=== PATIENT | female | born 1965 | race African-American/Black ===

== ENCOUNTER 2018-12-25 10:46 | Inpatient (IN) | payer OTHER ==
[2018-12-25 11:27] VITALS: BMI 21.9
--- NOTE | 2018-12-25 11:58 | HP ---
CIWA Score - Admission Criteria [facility] Guidelines: Admission for Medically Managed Detox: Requires at least one of the followin. CIWA greater than 12 2. Seizures within the past 24 hours 3. Delirium tremens within the past 24 hours 4. Hallucinations within the past 24 hours 5. Acute intervention needed for co occurring medical disorder 6. Acute intervention needed for co occurring psychiatric disorder 7. Severe withdrawal that cannot be handled at a lower level of care (continued vomiting, continued diarrhea, abnormal vital signs) requiring intravenous medication and/or fluids 8. Admission ROS [facility] - HPI Chief Complaint: i need help to come for rehab from cocaine and marijuana Allergies/Adverse Reactions: Allergies Allergy/AdvReac Type Severity Reaction Status Date / Time No Known Allergies Allergy Verified 12/25/18 11:38 History of Present Illness: this 53 years old female with cocaine and marijuana dependence,seeking rehab, [facility], nicotine dependence need help to stop using last treatment 2 0 years ago Exam Limitations: No Limitations - Ebola screening Have you traveled outside of the country in the last 21 days: No Have you had contact with anyone from an Ebola affected area: No Have you been sick,other than usual withdrawal symptoms: No Do you have a fever: No - Review of Systems Constitutional: No Symptoms Reported EENT: reports: No Symptoms Reported Respiratory: reports: No Symptoms reported Cardiac: reports: No Symptoms Reported GI: reports: No Symptoms Reported : reports: No Symptoms Reported Musculoskeletal: reports: No Symptoms Reported Integumentary: reports: No Symptoms Reported Neuro: reports: No Symptoms reported Endocrine: reports: No Symptoms Reported Hematology: reports: No Symptoms Reported Psychiatric: reports: No Sypmtoms Reported, Judgement Intact, Mood/Affect Appropiate, Orientated x3, other Other Systems: Reviewed and Negative Patient History - Patient Medical History Hx Anemia: No Hx Asthma: No Hx Chronic Obstructive Pulmonary Disease (COPD): No Hx Cancer: No Hx Cardiac Disorders: No Hx Congestive Heart Failure: No Hx Hypertension: No Hx Hypercholesterolemia: No Hx Pacemaker: No HX Cerebrovascular Accident: No Hx Seizures: No Hx Dementia: No Hx Diabetes: No Hx Gastrointestinal Disorders: No Hx Liver Disease: No Hx Genitourinary Disorders: No Hx Sexually Transmitted Disorders: Yes (SYPHYLIS WITH TREATMENT) Hx Renal Disease (ESRD): No Hx Thyroid Disease: No Hx Human Immunodeficiency Virus (HIV): No (last 2017 negative) Hx Hepatitis C: No Hx Depression: Yes (DOES NOT KNOW THE NAME OF THE DEPRESSION MEDICATION) Hx Suicide Attempt: No Hx Bipolar Disorder: No Hx Schizophrenia: No Other Medical History: no sucidal,no homicidal - Patient Surgical History Past Surgical History: No Hx Neurologic Surgery: No Hx Cataract Extraction: No Hx Cardiac Surgery: No Hx Lung Surgery: No Hx Breast Surgery: No Hx Breast Biopsy: No Hx Abdominal Surgery: No Hx Appendectomy: No Hx Cholecystectomy: No Hx Genitourinary Surgery: No Hx Section: No Hx Orthopedic Surgery: No Anesthesia Reaction: No - PPD History Previous Implant?: Yes Documented Results: Negative w/o proof Implanted On Prior [facility] Admission?: No PPD to be Administered?: Yes - Reproductive History Last Menstrual Period: 12/26/08 Patient : No - Smoking Cessation Smoking history: Current every day smoker Have you smoked in the past 12 months: Yes Aproximately how many cigarettes per day: 5 Hx Chewing Tobacco Use: No Initiated information on smoking cessation: Yes 'Breaking Loose' booklet given: 12/25/18 - Substance & Tx. History Hx Alcohol Use: No Hx Substance Use: Yes Substance Use Type: Cocaine, Marijuana Hx Substance Use Treatment: Yes ([facility] 20 years ago) - Substances Abused Marijuana/Hashish Route: Smoking Frequency: Daily Amount used: 2 BAGS Age of first use: 14 Date of Last Use: 12/24/18 Cocaine Route: Inhalation Frequency: 1-2 times per week Amount used: 1 GRAM Age of first use: 19 Date of Last Use: 12/18/18 Family Disease History - Family Disease History Family History: Denies Admission Physical Exam [facility] - Vital Signs Vital Signs: Vital Signs - 24 hr 12/25/18 11:26 Temperature 98.2 F Pulse Rate 64 Respiratory 18 Rate Blood Pressure 112/58 L - Physical General Appearance: Yes: Within Normal Limits HEENTM: Yes: Within Normal Limits, Normal ENT Inspection, MAYRA Respiratory: Yes: Within Normal Limits, Lungs Clear, Normal Breath Sounds Neck: Yes: Within Normal Limits, Supple, Trachea in good position Breast: Yes: Breast Exam Deferred Cardiology: Yes: Within Normal Limits, Regular Rhythm, Regular Rate, S1, S2 Abdominal: Yes: Within Normal Limits, Normal Bowel Sounds, Non Tender, Soft Genitourinary: Yes: Within Normal Limits Back: Yes: Within Normal Limits Musculoskeletal: Yes: Within Normal Limits, full range of Motion Extremities: Yes: Within Normal Limits Neurological: Yes: zipper measurer II-XII NML intact, Alert, Motor Strength 5/5 Integumentary: Yes: Within Normal Limits Lymphatic: Yes: Within Normal Limits - Diagnostic (1) Cocaine dependence Current Visit: Yes Status: Acute (2) Cannabis dependence Current Visit: Yes Status: Acute (3) Nicotine dependence Current Visit: Yes Status: Acute (4) History of syphilis Current Visit: Yes Status: Acute Cleared for Admission [facility] - Detox or Rehab Claeared for Rehab Admission: Yes [facility] Breath Alcohol Content Breath Alcohol Content: 0 Urine Pregancy Test - Result Urine Test Results: Negative- NO Line Present Urine Drug Screen - Results Drug Screen Negative: No Urine Drug Screen Results: THC-Marijuana Inpatient Rehab Admission - Rehab Decision to Admit Inpatient rehab admission?: Yes - Initial Determination Are CD services needed?: Yes Free of communicable disease: Yes Not in need of hospitalization: Yes - Rehab Admission Criteria Previous failed treatment: Yes Poor recovery environment: Yes Comorbidities: Yes Lacks judgement: No Patient is meeting Inpatient Rehab admission criteria:: Yes
[2018-12-25] MEDS ORDERED: LOPERAMIDE HCL 2 MG CAPSULE PO PRN (12:56)
[2018-12-25] MEDS ORDERED: MAGNESIUM CITRATE 300 ML BOTTLE PO PRN (12:56)
[2018-12-25] MEDS ORDERED: MENTHOL/PHENOL 1 EACH UD MM PRN (12:56)
[2018-12-25] MEDS ORDERED: MAGNESIUM HYDROX 2400MG/30ML ORAL SUSPENSION 30 ML CUP PO PRN (12:56)
[2018-12-25] MEDS ORDERED: MAG HYDROX/AL HYDROX/SIMETH 30 ML UNIT-DOSE CUP PO PRN (12:56)
[2018-12-25] MEDS ORDERED: guaiFENesin/D-METHORPHAN HB 10 ML UNIT-DOSE CUPS PO PRN (12:56)
[2018-12-25] MEDS ORDERED: IBUPROFEN 400 MG TABLET (FP) PO PRN (12:56)
[2018-12-25] MEDS ORDERED: ACETAMINOPHEN 325 MG TABLET (FP) PO PRN (12:56)
[2018-12-25] MEDS ORDERED: P-EPHED 60MG/TRIPROLIDI 2.5MG TABLET PO PRN (12:56)
[2018-12-25] MEDS ORDERED: NICOTINE 14 MG/24 HOURS TOPICAL PATCH TD SCH (13:30)
[2018-12-25 16:19] LABS: HEMATOCRIT 36.8 % (32.4-45.2); MCH 33.3 pg (25.7-33.7); MCHC 35.2 g/dl (32.0-36.0); MEAN CELL VOLUME 94.5 fl (80-96); PLATELET COUNT 197 K/MM3 (134-434); RBC 3.89 M/mm3 (3.60-5.2); RDW 14.5 % (11.6-15.6); WHITE BLOOD COUNT 5.2 K/mm3 (4.0-10.0)
[2018-12-25 17:21] LABS: ALBUMIN 3.9 g/dl (3.4-5.0); ALK PHOS 82 U/L (45-117); ANION GAP 6 MMOL/L (8-16); BILIRUBIN,TOTAL 0.2 mg/dL (0.2-1); BLOOD UREA NITROGEN 17 mg/dL (7-18); CHLORIDE 107 mmol/L (98-107); CO2 31 mmol/L (21-32); CREATININE 0.8 mg/dL (0.55-1.3); GLUCOSE,RANDOM 56 mg/dL (74-106); SGOT/AST 10 U/L (15-37); SGPT/ALT 17 U/L (13-61); SODIUM 143 mmol/L (136-145); TOT PROT 6.9 g/dl (6.4-8.2)
[2018-12-25] MEDS: NICOTINE POLACRILEX 2 MG GUM BC PRN (18:26)
[2018-12-25] MEDS: hydrOXYzine PAMOATE 50 MG CAPSULE (FP) PO PRN (18:26)
[2018-12-25] MEDS: NICOTINE 14 MG/24 HOURS TOPICAL PATCH TD SCH (18:35)
[2018-12-25] MEDS: THIAMINE HCL 100 MG TABLET (FP) PO SCH (21:15)
[2018-12-25] MEDS ORDERED: MELATONIN 5 MG TABLETS PO PRN (22:00)
[2018-12-26 01:57] LABS: URINE APPEARANCE SLCLOUDY; URINE BILIRUBIN NEGATIVE (<2.0 mg/dL); URINE COLOR LTYELLOW; URINE GLUCOSE (UA) NEGATIVE (NEGATIVE); URINE KETONE NEGATIVE (NEGATIVE); URINE LEUK ESTERASE NEGATIVE (NEGATIVE); URINE NITRITE NEGATIVE (NEGATIVE); URINE PROTEIN NEGATIVE (NEGATIVE); URINE UROBILINOGEN NEGATIVE mg/dL (0.2-1.0)
[2018-12-26] MEDS: hydrOXYzine PAMOATE 50 MG CAPSULE (FP) PO PRN ×2 (06:52→21:39)
--- NOTE | 2018-12-26 10:00 | EKG ---
Test Reason : Blood Pressure : / mmHG Vent. Rate : 064 BPM Atrial Rate : 064 BPM P-R Int : 186 ms QRS Dur : 072 ms QT Int : 406 ms P-R-T Axes : 056 008 048 degrees QTc Int : 418 ms NORMAL SINUS RHYTHM WITH SINUS ARRHYTHMIA SEPTAL INFARCT (CITED ON OR BEFORE 06-JUN-2013) ABNORMAL ECG WHEN COMPARED WITH ECG OF 07-JAN-2016 09:50, QUESTIONABLE CHANGE IN INITIAL FORCES OF SEPTAL LEADS QT HAS SHORTENED Confirmed by ESTEBAN KENDALL, BERTIN ([id number]) on 12/26/2018 9:59:47 AM Referred By: Confirmed By:BERTIN ORELLANA MD
[2018-12-26] MEDS: NICOTINE 14 MG/24 HOURS TOPICAL PATCH TD SCH (10:32)
[2018-12-26] MEDS: PRENATAL VITAMINS W/ FOLIC ACID TABLET (FP) PO SCH (10:32)
[2018-12-26 11:34] LABS: RPR REACTIVE 1:1 (NONREACTIVE)
[2018-12-26 14:49] LABS: TREPONEMA ANTIBODY REACTIVE (NONREACTIVE)
--- NOTE | 2018-12-26 14:55 | PN ---
[facility] Progress Note Note: Laboratory Tests 12/25/18 12/25/18 12/25/18 13:20 13:20 13:20 WBC 5.2 RBC 3.89 Hgb 13.0 Hct 36.8 MCV 94.5 MCH 33.3 MCHC 35.2 RDW 14.5 Plt Count 197 MPV 10.0 Sodium 143 Potassium 4.0 Chloride 107 Carbon Dioxide 31 Anion Gap 6 L BUN 17 Creatinine 0.8 Creat Clearance w eGFR > 60 Random Glucose 56 L Calcium 9.0 Total Bilirubin 0.2 AST 10 L ALT 17 Alkaline Phosphatase 82 Total Protein 6.9 Albumin 3.9 Urine Color Urine Appearance Urine pH Ur Specific [place] Urine Protein Urine Glucose (UA) Urine Ketones Urine Blood Urine Nitrite Urine Bilirubin Urine Urobilinogen Ur Leukocyte Esterase RPR Titer Reactive 1:1 H T.pallidum Ab (MHA) Reactive 12/25/18 23:18 WBC RBC Hgb Hct MCV MCH MCHC RDW Plt Count MPV Sodium Potassium Chloride Carbon Dioxide Anion Gap BUN Creatinine Creat Clearance w eGFR Random Glucose Calcium Total Bilirubin AST ALT Alkaline Phosphatase Total Protein Albumin Urine Color Ltyellow Urine Appearance Slcloudy Urine pH 6.0 Ur Specific [place] 1.020 Urine Protein Negative Urine Glucose (UA) Negative Urine Ketones Negative Urine Blood Negative Urine Nitrite Negative Urine Bilirubin Negative Urine Urobilinogen Negative Ur Leukocyte Esterase Negative RPR Titer T.pallidum Ab (MHA) RPR NOTED. PT REPORTS HX OF SYPHILIS AND TREATMENT.
[2018-12-26] MEDS: THIAMINE HCL 100 MG TABLET (FP) PO SCH (21:39)
[2018-12-27] MEDS: NICOTINE 14 MG/24 HOURS TOPICAL PATCH TD SCH (09:54)
[2018-12-27] MEDS: PRENATAL VITAMINS W/ FOLIC ACID TABLET (FP) PO SCH (09:54)
[2018-12-27] MEDS: THIAMINE HCL 100 MG TABLET (FP) PO SCH (22:14)
[2018-12-28] MEDS: NICOTINE 14 MG/24 HOURS TOPICAL PATCH TD SCH (09:51)
[2018-12-28] MEDS: PRENATAL VITAMINS W/ FOLIC ACID TABLET (FP) PO SCH (09:51)
[2018-12-28] MEDS: hydrOXYzine PAMOATE 50 MG CAPSULE (FP) PO PRN (09:52)
[2018-12-28] MEDS: THIAMINE HCL 100 MG TABLET (FP) PO SCH (22:18)
[2018-12-29] MEDS: NICOTINE 14 MG/24 HOURS TOPICAL PATCH TD SCH (09:57)
[2018-12-29] MEDS: PRENATAL VITAMINS W/ FOLIC ACID TABLET (FP) PO SCH (09:57)
[2018-12-29] MEDS: NICOTINE POLACRILEX 2 MG GUM BC PRN (09:59)
[2018-12-29] MEDS: THIAMINE HCL 100 MG TABLET (FP) PO SCH (21:54)
[2018-12-30] MEDS: PRENATAL VITAMINS W/ FOLIC ACID TABLET (FP) PO SCH (09:52)
[2018-12-30] MEDS: NICOTINE 14 MG/24 HOURS TOPICAL PATCH TD SCH (09:52)
[2018-12-30] MEDS: THIAMINE HCL 100 MG TABLET (FP) PO SCH (21:51)
[2018-12-31] MEDS: PRENATAL VITAMINS W/ FOLIC ACID TABLET (FP) PO SCH (09:43)
[2018-12-31] MEDS: NICOTINE 14 MG/24 HOURS TOPICAL PATCH TD SCH (09:43)
[2018-12-31] MEDS: THIAMINE HCL 100 MG TABLET (FP) PO SCH (21:35)
[2019-01-01 06:47] VITALS: TEMP 97.6
[2019-01-01] MEDS: PRENATAL VITAMINS W/ FOLIC ACID TABLET (FP) PO SCH (09:20)
[2019-01-01] MEDS: NICOTINE 14 MG/24 HOURS TOPICAL PATCH TD SCH (09:20)
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
[2019-01-01] MEDS ORDERED: MELATONIN 5 MG TABLETS PO PRN (14:49)
[2019-01-01] MEDS: THIAMINE HCL 100 MG TABLET (FP) PO SCH (21:34)
[2019-01-02 07:05] VITALS: BP 129/80; PULSE 50
[2019-01-02] MEDS: NICOTINE 14 MG/24 HOURS TOPICAL PATCH TD SCH (09:50)
[2019-01-02] MEDS: PRENATAL VITAMINS W/ FOLIC ACID TABLET (FP) PO SCH (09:51)
[2019-01-02] MEDS: NICOTINE POLACRILEX 2 MG GUM BC PRN (09:52)
--- NOTE | 2019-01-02 14:54 | PN ---
[facility] Progress Note Note: PT REQUEST FOR EARLY DISCHARGE TODAY STATING N"NOT GETTING ALONG WITH ANOTHER CLIENT AND WOULD PREFER TO FOLLOW UP AT [facility] ON [address] [place] [address]. PT IS ALERT O X 3. PT REPORTS SHE HAS A PCP, DR ANKITA RIZO ON [address] [place] [address] FOR MEDICAL MANAGEMENT. Vital Signs (72 hours) 12/31/18 12/31/18 12/31/18 00:30 03:30 07:07 Temperature 97.8 F Pulse Rate 57 L Respiratory 18 18 18 Rate Blood Pressure 121/66 01/01/19 01/01/19 01/01/19 00:30 03:30 06:47 Temperature 97.6 F Pulse Rate 62 Respiratory 18 18 18 Rate Blood Pressure 135/75 01/02/19 01/02/19 00:30 07:04 Temperature 97.6 F Pulse Rate 50 L Respiratory 18 18 Rate Blood Pressure 129/80 Laboratory Tests 12/25/18 12/25/18 12/25/18 13:20 13:20 13:20 WBC 5.2 RBC 3.89 Hgb 13.0 Hct 36.8 MCV 94.5 MCH 33.3 MCHC 35.2 RDW 14.5 Plt Count 197 MPV 10.0 Sodium 143 Potassium 4.0 Chloride 107 Carbon Dioxide 31 Anion Gap 6 L BUN 17 Creatinine 0.8 Creat Clearance w eGFR > 60 Random Glucose 56 L Calcium 9.0 Total Bilirubin 0.2 AST 10 L ALT 17 Alkaline Phosphatase 82 Total Protein 6.9 Albumin 3.9 Urine Color Urine Appearance Urine pH Ur Specific [place] Urine Protein Urine Glucose (UA) Urine Ketones Urine Blood Urine Nitrite Urine Bilirubin Urine Urobilinogen Ur Leukocyte Esterase RPR Titer Reactive 1:1 H T.pallidum Ab (MHA) Reactive 12/25/18 23:18 WBC RBC Hgb Hct MCV MCH MCHC RDW Plt Count MPV Sodium Potassium Chloride Carbon Dioxide Anion Gap BUN Creatinine Creat Clearance w eGFR Random Glucose Calcium Total Bilirubin AST ALT Alkaline Phosphatase Total Protein Albumin Urine Color Ltyellow Urine Appearance Slcloudy Urine pH 6.0 Ur Specific [place] 1.020 Urine Protein Negative Urine Glucose (UA) Negative Urine Ketones Negative Urine Blood Negative Urine Nitrite Negative Urine Bilirubin Negative Urine Urobilinogen Negative Ur Leukocyte Esterase Negative RPR Titer T.pallidum Ab (MHA) NAD MEDICALLY STABLE PLAN:FOLLOW UP WITH [facility] FOR CD AFTERCARE RECOMMENDED FOLLOW UP WITH PCP ABOVE FOR MEDICAL MANAGEMENT WITHIN 1-2 WEEKS AFTER DISCHARGE.
== END 2019-01-02 13:40 | disposition home or self-care (01) | DRG 772 ==
LOC: YASAS 10:46 → Y3E 12:32
PROVIDERS: ADMIT Neuromusculoskeletal Medicine & OMM; ATTEND Neuromusculoskeletal Medicine & OMM
PROC: HZ42ZZZ Group Counseling for Substance Abuse Treatment, Cognitive-Behavioral (ICD-10-PCS; principal; 2018-12-25)
DX: F14.20 Cocaine dependence, uncomplicated (principal); F12.20 Cannabis dependence, uncomplicated; F17.210 Nicotine dependence, cigarettes, uncomplicated; F19.24 Other psychoactive substance dependence with psychoactive substance-induced mood disorder; F19.282 Other psychoactive substance dependence with psychoactive substance-induced sleep disorder; Z87.42 Personal history of other diseases of the female genital tract
CPT/HCPCS: 36415; 80053; 81003; 85027; 86593; 86780; 93005; 93010

== ENCOUNTER 2019-04-01 09:52 | Emergency (ER) | payer OTHER | END 2019-04-01 11:08 | disposition home or self-care (01) | LOC: JERFT 09:52 ==

== ENCOUNTER 2019-04-09 12:53 | Emergency (ER) | payer OTHER | END 2019-04-09 13:47 | disposition home or self-care (01) | LOC: JERFT 12:53 ==

== ENCOUNTER 2020-08-01 14:14 | Emergency (ER) | payer OTHER ==
[2020-08-01 14:34] VITALS: BMI 20.3
--- NOTE | 2020-08-01 14:42 | PDOC ---
History of Present Illness - General Chief Complaint: Nausea/Vomiting Stated Complaint: GENERAL WEAKNESS, VOMITING Time Seen by Provider: 08/01/20 14:41 History Source: Patient Exam Limitations: No Limitations - History of Present Illness Initial Comments: 08/01/20 14:42 Sena Goff is an otherwise healthy 55F presenting with one day of nausea, vomiting, and diarrhea. Since 7PM last night has had acute onset nausea and vomiting with fevers. 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 Had some orange juice, fruits, and some soup yesterday, no other sick contacts, lives alone. Denies any urinary symptoms, but has had loose stools and abdominal cramping after vomiting. Vomit is clear and green, no blood. No PSH. Denies alcohol use, last smoked marijuana a few days ago, averages 1 blunt every few days, smokes cigarettes. Denies LEVY, dizziness, chest pain, SOB, vision changes, unsteady gait. No prior pain or symptoms like this. Past History - Medical History Allergies/Adverse Reactions: Allergies Allergy/AdvReac Type Severity Reaction Status Date / Time No Known Allergies Allergy Verified 08/01/20 14:34 Anemia: No Asthma: No Cancer: No Cardiac Disorders: No CVA: No COPD: No CHF: No Dementia: No Diabetes: No GI Disorders: No Disorders: No HTN: No Hypercholesterolemia: No Kidney Stones: No Liver Disease: No Seizures: No Thyroid Disease: No - Surgical History Abdominal Surgery: No Appendectomy: No Cardiac Surgery: No Cholecystectomy: No Lung Surgery: No Neurologic Surgery: No Orthopedic Surgery: No - Reproductive History Is Patient Now?: No - Immunization History Immunization Up to Date: Yes - Psycho-Social/Smoking History Smoking Status: No Smoking History: Never smoked Have you smoked in the past 12 months: No Number of Cigarettes Smoked Daily: 1 Information on smoking cessation initiated: No 'Breaking Loose' booklet given: 12/25/18 - Substance Abuse Hx (Audit-C & DAST Scrn) How often the patient has a drink containing alcohol: Never Score: In Men: 4 or > Positive; In Women: 3 or > Positive: 0 Screen Result (Pos requires Nsg. Audit-10AR): Negative In the last yr the pt used illegal drug/Rx for NonMed reason: No Score: Yes response is considered Positive: 0 Screen Result (Positive result requires Nsg. DAST-10): Negative Review of Systems - Review of Systems Able to Perform ROS?: Yes Constitutional: Yes: Fever HEENTM: No: Symptoms Reported Respiratory: No: Symptoms reported Cardiac (ROS): No: Symptoms Reported ABD/GI: Yes: Diarrhea, Nausea, Poor Appetite, Poor Fluid Intake, Vomiting. No: Constipated : No: Symptoms Reported Musculoskeletal: No: Symptoms Reported Integumentary: No: Symptoms Reported Neurological: No: Symptoms reported Endocrine: No: Symptoms Reported Hematologic/Lymphatic: No: Symptoms Reported All Other Systems: Reviewed and Negative *Physical Exam - Vital Signs Last Vital Signs Temp Pulse Resp BP Pulse Ox 70 16 130/72 100 08/01/20 14:15 08/01/20 14:15 08/01/20 14:15 08/01/20 14:15 - Physical Exam General Appearance: Yes: Nourished, Appropriately Dressed, Other (lying in bed in position, intermittently vomiting). No: Apparent Distress HEENT: positive: EOMI, MAYRA, Normal Voice, Symmetrical, Pharynx Normal, Hearing Grossly Normal. negative: Scleral Icterus (R), Scleral Icterus (L), Pharyngeal Erythema, Tonsillar Exudate, Tonsillar Erythema Neck: positive: Trachea midline, Normal Thyroid, Supple. negative: Tender, Rigid, Decreased range of motion, Lymphadenopathy (R), Lymphadenopathy (L), Tender lateral, Tender midline Respiratory/Chest: positive: Lungs Clear, Normal Breath Sounds. negative: Chest Tender, Respiratory Distress, Accessory Muscle Use, Crackles, Rales, Rhonchi, Stridor, Wheezing Cardiovascular: positive: Regular Rhythm, Regular Rate. negative: Murmur Gastrointestinal/Abdominal: positive: Normal Bowel Sounds, Flat, Soft. negative: Tender, Organomegaly, Pulsatile Mass, Protuberent, Guarding, Rebound, Hernia Musculoskeletal: positive: Normal Inspection. negative: CVA Tenderness, Decreased Range of Motion, Vertebral Tenderness Extremity: positive: Normal Capillary Refill, Normal Inspection, Normal Range of Motion, Pelvis Stable. negative: Tender, Pedal Edema, Swelling, Calf Tenderness Integumentary: positive: Normal Color, Dry, Warm. negative: Cyanotic, Jaundice Neurologic: positive: Fully Oriented, Alert, Normal Mood/Affect, Normal Response ED Treatment Course - LABORATORY CBC & Chemistry Diagram: 08/01/20 15:15 08/01/20 15:15 Medical Decision Making - Medical Decision Making 08/01/20 14:42 Patient presents with one day of nausea and vomiting with diarrhea, some abdominal pain and subjective fever, no other PMH, no PSH. VSS, abdomen non- tender. Suspect gastroenteritis/gastritis/GB pathology/pancreatitis. Ordering CBC/CMP/lipase/ECG/CXR/CP/UA/UC, with IVF and Ofirmev for pain control. 08/01/20 15:53 ECG NSR with sinus arrhythmia, HR 86, QTc 631, inverted P wave V2, ? U waves, no TERESA/D or TWI. Will order repeat given QTc prolongation and ? Q waves Labs notable for: - WBC 11.4, Hgb 16.9, consistent with hemoconcentration - K 3.4, low, will attempt to replete but vomiting, repleting IV - lipase 57 Getting IVF and K+ now, repeat ECG, will continue to monitor. 08/01/20 17:34 Repeat ECG sinus rhythm with HR 78, QTc 468, inverted P wave to V2, no TERESA/D or TWI. 08/01/20 18:28 Re-evaluated, has received 3L IVF, potassium, and Reglan and Zofran. Patient feeling better but still a little nauseated, concerned that she will go home and continue to vomit. Discussed giving patient medication for nausea at home. Still need urine for eval UTI as cause of nausea, patient to give now. Rx for Zofran sent to pharmacy. Will sign out to night team, f/u UA and dispo based on PO challenge for vomiting. Discharge - Discharge Information Problems reviewed: Yes Clinical Impression/Diagnosis: Nausea and vomiting in adult Condition: Stable - Follow up/Referral Referrals: Ekaterina Sandoval MD [Primary Care Provider] - - Patient Discharge Instructions Patient Printed Discharge Instructions: DI for Vomiting -- Adult Additional Instructions: Today you were seen for nausea and vomiting. Your labs show that you are dehydrated and had low potassium, but that you are not having any serious problems that needs hospital admission. We gave you IV fluids, potassium, and medications called Reglan and Zofran, and your symptoms got better. At home, we have sent a prescription for Zofran, a medicine that works to reduce your nausea and helped while in the emergency room. Take it every 6 hours as needed for nausea. Eat a bland diet, and stick to liquids and soups today to allow your stomach to rest. See your regular doctor in the next week for further care. If you experience worsening nausea, vomiting, abdominal pain, fever, or any other new or concerning symptoms, please return to the emergency room. - Post Discharge Activity
--- NOTE | 2020-08-01 14:53 | PDOC ---
Attending Attestation - Resident Resident Name: Aníbal Vasquez - ED Attending Attestation I have performed the following: I have examined & evaluated the patient, The case was reviewed & discussed with the resident, I agree w/resident's findings & plan, Exceptions are as noted - HPI HPI: 08/01/20 14:52 55y F no significant pmhx presents with nausea/vomiting since yesterday. Symptoms started while the patient was at work, the patient felt very nauseous she was occasionally diaphoretic vomited nonbilious nonbloody contents, she does endorse a crampy abdominal pain after vomiting. She does endorse a couple of bowel movements without any diarrhea/bpr. Denies including fever, chills, headache, chest pain, back pain dysuria, current abdominal pain, coughihng. No recent travel or known sick contacts social hx: works in a [employer], social ETOH, occsaional marijuana, denies smoking surgical hx: no prior abd surgeries - Physicial Exam PE: 08/01/20 16:07 GENERAL: The patient is awake, alert, and fully oriented, Nontoxic - in no acute distress. HEAD: Normocephalic, atraumatic. EYES: extraocular movements intact, sclera anicteric, conjunctiva clear. ENT: Normal voice, dry mucous membranes. NECK: Normal range of motion, supple LUNGS: Breath sounds equal, clear to auscultation bilaterally. No wheezes, no rhonchi, no rales. HEART: Regular rate and rhythm, normal S1 and S2 without murmur, rub or gallop. ABDOMEN: Soft, nontender, No guarding, no rebound. No CVA tenderness EXTREMITIES: Normal range of motion, no edema. NEUROLOGICAL: No facial assymetry, Normal speech, PSYCH: Normal mood, normal affect. SKIN: Warm, Dry, normal turgor, - Medical Decision Making 08/01/20 16:09 Differential includes but is not limited to gastroenteritis, gastritis. Her ex am is benign without any signs of focal tenderness no rebound or guarding. The patient was given GI cocktail antiemetics with significant improvement of symptoms. The patient's blood work noted for mild hypokalemia, will replete potassium. Will reassess the patient a p.o. challenge Heart Score/ECG Review - ECG Impressions Comment:: 08/01/20 16:10 Twelve-lead EKG was performed and reviewed by me. There is normal sinus rhythm with a rate of 86 abnromal r wave progression prolonged qt Discharge - Discharge Information Problems reviewed: Yes Clinical Impression/Diagnosis: Nausea and vomiting in adult Condition: Stable Disposition: HOME - Additional Discharge Information Prescriptions: Cephalexin [Keflex] 500 mg PO BID 7 Days #14 capsule - Follow up/Referral Referrals: Ekaterina Sandoval MD [Primary Care Provider] - - Patient Discharge Instructions Patient Printed Discharge Instructions: DI for Vomiting -- Adult Additional Instructions: Today you were seen for nausea and vomiting. Your labs show that you are dehydrated and had low potassium, but that you are not having any serious problems that needs hospital admission. We gave you IV fluids, potassium, and medications called Reglan and Zofran, and your symptoms got better. At home, we have sent a prescription for Zofran, a medicine that works to reduce your nausea and helped while in the emergency room. Take it every 6 hours as needed for nausea, We also sent a prescription of Keflex take 1 pill two times a day for 7 days. Eat a bland diet, and stick to liquids and soups today to allow your stomach to rest. See your primary care doctor Dr. Sandoval on Friday 08/03 for fur ther care. If you experience worsening nausea, vomiting, abdominal pain, fever, or any other new or concerning symptoms, please return to the emergency room. - Post Discharge Activity
[2020-08-01] MEDS ORDERED: LACTATED RINGERS SOLUTION 1000 ML INFUS.BAG IV ONE (15:02)
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
[2020-08-01] MEDS ORDERED: ACETAMINOPHEN 1000 MG/100 ML VIAL (NON FORMULARY) IVPB ONE (15:32)
[2020-08-01] MEDS ORDERED: ONDANSETRON 4 MG/2 ML VIAL IVPUSH ONE (15:32)
[2020-08-01 15:35] LABS: BASO % 0.3 % (0-2.0); HEMATOCRIT 50.4 % (32.4-45.2); HEMOGLOBIN 16.9 GM/dL (10.7-15.3); LYMPH % 7.5 % (8-40); MCH 30.9 pg (25.7-33.7); MCHC 33.4 g/dl (32.0-36.0); MEAN CELL VOLUME 92.5 fl (80-96); MEAN PLT VOLUME 10.6 fl (7.5-11.1); MONO % 4.9 % (3.8-10.2); NEUT % 87.3 % (42.8-82.8); PLATELET COUNT 240 K/MM3 (134-434); RBC 5.45 M/mm3 (3.60-5.2); RDW 14.9 % (11.6-15.6); WHITE BLOOD COUNT 11.4 K/mm3 (4.0-10.0)
[2020-08-01 15:46] LABS: ALBUMIN 4.4 g/dl (3.4-5.0); ANION GAP 10 MMOL/L (8-16); BLOOD UREA NITROGEN 12.5 mg/dL (7-18); CALCIUM 9.9 mg/dL (8.5-10.1); CHLORIDE 103 mmol/L (98-107); CO2 28 mmol/L (21-32); GLUCOSE,RANDOM 110 mg/dL (74-106); LIPASE 57 U/L (73-393); POTASSIUM 3.4 mmol/L (3.5-5.1); SODIUM 141 mmol/L (136-145)
[2020-08-01 15:53] LABS: ALK PHOS 89 U/L (45-117); BILIRUBIN,TOTAL 0.6 mg/dL (0.2-1); CREATININE 0.7 mg/dL (0.55-1.3); SGOT/AST 19 U/L (15-37); SGPT/ALT 22 U/L (13-61); TOT PROT 8.5 g/dl (6.4-8.2)
[2020-08-01] MEDS ORDERED: POTASSIUM CHLORIDE ORAL LIQUID 20 MEQ/15 ML PO ONE (15:58)
[2020-08-01] MEDS ORDERED: POTASSIUM CHLORIDE 20 MEQ PREMIX IVPB 100 ML IVPB ONE (16:32)
[2020-08-01] MEDS ORDERED: METOCLOPRAMIDE HCL INJECTION 10 MG/2 ML VIAL IVPB ONE (17:37)
--- NOTE | 2020-08-01 19:12 | PDOC ---
*Physical Exam - Vital Signs Last Vital Signs Temp Pulse Resp BP Pulse Ox 98.3 F 70 16 130/72 100 08/01/20 14:15 08/01/20 14:15 08/01/20 14:15 08/01/20 14:15 08/01/20 14:15 - Physical Exam General Appearance: Yes: Nourished, Appropriately Dressed. No: Apparent Distress Respiratory/Chest: positive: Lungs Clear, Normal Breath Sounds, Other (Coarse). negative: Chest Tender, Crackles, Stridor, Wheezing Cardiovascular: positive: Regular Rhythm, Regular Rate. negative: Edema, JVD, Murmur Gastrointestinal/Abdominal: positive: Normal Bowel Sounds, Flat, Soft. negative: Tender, Distended, Guarding, Rebound, Tenderness Musculoskeletal: positive: Normal Inspection. negative: CVA Tenderness Extremity: positive: Normal Inspection. negative: Tender, Pedal Edema, Swelling, Calf Tenderness Integumentary: positive: Normal Color, Dry, Warm Neurologic: positive: Fully Oriented, Alert, Normal Mood/Affect, Normal Response ED Treatment Course - LABORATORY CBC & Chemistry Diagram: 08/01/20 15:15 08/01/20 15:15 - ADDITIONAL ORDERS Additional order review: Laboratory Results 08/01/20 08/01/20 15:15 15:15 Sodium 141 Potassium 3.4 L Chloride 103 Carbon Dioxide 28 Anion Gap 10 BUN 12.5 Creatinine 0.7 Est GFR (CKD-EPI)AfAm 112.26 Est GFR (CKD-EPI)NonAf 96.86 Random Glucose 110 H Lactic Acid 1.5 Calcium 9.9 Magnesium 2.0 Total Bilirubin 0.6 AST 19 ALT 22 Alkaline Phosphatase 89 Creatine Kinase 338 H Creatine Kinase Index 1.0 CK-MB (CK-2) 3.4 Troponin I < 0.02 Total Protein 8.5 H Albumin 4.4 Lipase 57 L 08/01/20 15:15 RBC 5.45 H MCV 92.5 MCHC 33.4 RDW 14.9 MPV 10.6 Neutrophils % 87.3 H Lymphocytes % 7.5 L D Monocytes % 4.9 D Eosinophils % 0.0 Basophils % 0.3 D - Medications Given in the ED: ED Medications Discontinued Medications Generic Name Dose Route Start Last Admin Trade Name Freq PRN Reason Stop Dose Admin Acetaminophen 1,000 mg 08/01/20 15:32 08/01/20 15:48 Ofirmev Injection - IVPB 08/01/20 15:33 1,000 mg ONCE ONE Administration Lactated Ringer's 1,000 ml 08/01/20 15:02 08/01/20 15:16 Lactated Ringers Solution IV 08/01/20 15:03 1,000 ml ONCE ONE Administration Metoclopramide HCl 10 mg 08/01/20 17:37 08/01/20 17:50 Reglan Injection - IVPB 08/01/20 17:38 10 mg ONCE ONE Administration Ondansetron HCl 4 mg 08/01/20 15:32 08/01/20 15:44 Zofran Injection IVPUSH 08/01/20 15:33 4 mg ONCE ONE Administration Potassium Chloride 40 meq 08/01/20 15:58 08/01/20 16:40 Potassium Chloride Oral Liquid PO 08/01/20 15:59 Not Given ONCE ONE Potassium Chloride 20 meq 08/01/20 16:32 08/01/20 16:40 Potassium Chloride 20 Meq Premix Ivpb - IVPB 08/01/20 16:33 20 meq ONCE ONE Administration Medical Decision Making - Medical Decision Making 08/01/20 19:12 Patient signed out by Dr. Ayoub Patient reports feel better no episodes of N/V. Patient is able to hold down water and crackers. Patient endorses R sided flank pain Labs: WBC 11.4, K 3.4, lipase 57 UA: 2+ blood, 3+ ketones, 3+ protein Spiral CT: No acute pathology PO challenge: patient is holding down food/liquid - Spoke with Dr. Sandoval he recommended d/c with f/u Monday in the office. Dispo: D/C home 08/01/20 22:06 Discharge - Discharge Information Problems reviewed: Yes Clinical Impression/Diagnosis: Nausea and vomiting in adult Condition: Stable - Admission No - Additional Discharge Information Prescriptions: Cephalexin [Keflex] 500 mg PO BID 7 Days #14 capsule - Follow up/Referral Referrals: Ekaterina Sandoval MD [Primary Care Provider] - - Patient Discharge Instructions Patient Printed Discharge Instructions: DI for Vomiting -- Adult Additional Instructions: Today you were seen for nausea and vomiting. Your labs show that you are dehydrated and had low potassium, but that you are not having any serious problems that needs hospital admission. We gave you IV fluids, potassium, and medications called Reglan and Zofran, and your symptoms got better. At home, we have sent a prescription for Zofran, a medicine that works to reduce your nausea and helped while in the emergency room. Take it every 6 hours as needed for nausea, We also sent a prescription of Keflex take 1 pill two times a day for 7 days. Eat a bland diet, and stick to liquids and soups today to allow your stomach to rest. See your primary care doctor Dr. Sandoval on Friday 08/03 for further care. If you experience worsening nausea, vomiting, abdominal pain, fever, or any other new or concerning symptoms, please return to the emergency room. - Post Discharge Activity
[2020-08-01 19:34] LABS: EPI CELLS >36 /uL (0-25.1); HYALINE CASTS 2 /uL (0-3.1); URINE APPEARANCE CLEAR; URINE BACTERIA 1943 /uL (0-1359); URINE BILIRUBIN NEGATIVE (NEGATIVE); URINE COLOR YELLOW; URINE GLUCOSE (UA) NEGATIVE (NEGATIVE); URINE KETONE 3+ (NEGATIVE); URINE LEUK ESTERASE NEGATIVE (NEGATIVE); URINE NITRITE NEGATIVE (NEGATIVE); URINE PROTEIN 3+ (NEGATIVE); URINE RBC 25 /uL (0-23.9); URINE UROBILINOGEN 0.2 mg/dL (0.2-1.0); URINE WBC 45 /uL (0-25.8)
[2020-08-01] MEDS ORDERED: CEPHALEXIN MONOHYDRATE 500 MG CAPSULE (UD) PO ONE (19:42)
[2020-08-01] MEDS ORDERED: ACETAMINOPHEN 325 MG TABLET (FP) PO ONE (20:38)
[2020-08-01 21:15] VITALS: BP 173/82; PULSE 61; TEMP 99.2
--- NOTE | 2020-08-02 21:25 | EKG ---
Test Reason : Blood Pressure : / mmHG Vent. Rate : 078 BPM Atrial Rate : 078 BPM P-R Int : 142 ms QRS Dur : 078 ms QT Int : 408 ms P-R-T Axes : 083 -31 020 degrees QTc Int : 465 ms SINUS RHYTHM WITH PREMATURE ATRIAL COMPLEXES BIATRIAL ENLARGEMENT LEFT AXIS DEVIATION ANTERIOR INFARCT (CITED ON OR BEFORE 06-JUN-2013) ABNORMAL ECG WHEN COMPARED WITH ECG OF 01-AUG-2020 14:52, PREMATURE ATRIAL COMPLEXES ARE NOW PRESENT T WAVE VARIATION QT HAS SHORTENED Confirmed by KARYNA CARNEY MD ([id number]) on 08/02/2020 9:24:32 PM Referred By: Confirmed By:KARYNA CARNEY MD
--- NOTE | 2020-08-02 21:39 | EKG ---
Test Reason : Blood Pressure : / mmHG Vent. Rate : 086 BPM Atrial Rate : 086 BPM P-R Int : 144 ms QRS Dur : 076 ms QT Int : 528 ms P-R-T Axes : 082 -26 054 degrees QTc Int : 631 ms NORMAL SINUS RHYTHM WITH SINUS ARRHYTHMIA BIATRIAL ENLARGEMENT ANTEROSEPTAL INFARCT (CITED ON OR BEFORE 06-JUN-2013) T WAVE ABNORMALITY, CONSIDER LATERAL ISCHEMIA PROLONGED QT ABNORMAL ECG WHEN COMPARED WITH ECG OF 25-DEC-2018 14:04, QT HAS LENGTHENED Confirmed by KARYNA CARNEY MD ([id number]) on 08/02/2020 9:39:02 PM Referred By: Confirmed By:KARYNA CARNEY MD
== END 2020-08-01 22:24 | disposition home or self-care (01) ==
LOC: JER 14:14
PROC: 3E0333Z Introduction of Anti-inflammatory into Peripheral Vein, Percutaneous Approach (ICD-10-PCS; principal; 2020-08-01)
PROC: 3E033GC Introduction of Other Therapeutic Substance into Peripheral Vein, Percutaneous Approach (ICD-10-PCS; 2020-08-01)
DX: R11.2 Nausea with vomiting, unspecified (principal)
CPT/HCPCS: 36415; 71045-TC-FY; 74176-TC; 80053; 81003; 82550; 82553; 83605; 83690; 83735; 84484; 85025; 87086; 93005; 93010; 99285-25; J0131

== ENCOUNTER 2021-03-04 20:38 | Inpatient (IN) | payer OTHER ==
[2021-03-04] MEDS ORDERED: METOCLOPRAMIDE HCL INJECTION 10 MG/2 ML VIAL IVPB ONE (21:03)
[2021-03-04] MEDS ORDERED: LACTATED RINGERS SOLUTION 1000 ML INFUS.BAG IV ONE (21:03)
[2021-03-04] MEDS ORDERED: METOCLOPRAMIDE HCL INJECTION 10 MG/2 ML VIAL ONE (21:09)
[2021-03-04 21:42] LABS: HEMATOCRIT 44.7 % (32.4-45.2); HEMOGLOBIN 15.3 GM/dL (10.7-15.3); MCH 32.1 pg (25.7-33.7); MCHC 34.2 g/dl (32.0-36.0); MEAN CELL VOLUME 93.8 fl (80-96); MEAN PLT VOLUME 10.1 fl (7.5-11.1); PLATELET COUNT 220 K/MM3 (134-434); RBC 4.77 M/mm3 (3.60-5.2); RDW 14.7 % (11.6-15.6); WHITE BLOOD COUNT 13.3 K/mm3 (4.0-10.0)
[2021-03-04 22:03] LABS: CHLORIDE 106 mmol/L (98-107); SODIUM 144 mmol/L (136-145)
[2021-03-04 22:05] LABS: BLOOD UREA NITROGEN 9.9 mg/dL (7-18)
[2021-03-04 22:06] LABS: ALBUMIN 4.5 g/dl (3.4-5.0); ANION GAP 9 MMOL/L (8-16); CALCIUM 9.6 mg/dL (8.5-10.1); CO2 30 mmol/L (21-32); GLUCOSE,RANDOM 130 mg/dL (74-106); LIPASE 32 U/L (73-393); MAGNESIUM 1.7 mg/dL (1.8-2.4)
[2021-03-04 22:09] LABS: CREATININE 0.7 mg/dL (0.55-1.3); SGOT/AST 19 U/L (15-37); SGPT/ALT 23 U/L (13-61)
[2021-03-04] MEDS ORDERED: MAGNESIUM OXIDE 400 MG TABLET (FP) PO ONE (22:09)
[2021-03-04] MEDS ORDERED: POTASSIUM CHLORIDE TABS 20 MEQ TABLET.ER (FP) PO ONE ×2 (22:09→22:12)
[2021-03-04 22:10] LABS: BILIRUBIN,TOTAL 0.6 mg/dL (0.2-1)
[2021-03-04 22:11] LABS: TOT PROT 7.9 g/dl (6.4-8.2)
[2021-03-04 22:12] LABS: ALK PHOS 92 U/L (45-117)
[2021-03-04] MEDS ORDERED: MAGNESIUM OXIDE 400 MG TABLET (FP) ONE (22:12)
[2021-03-05] MEDS ORDERED: ONDANSETRON 4 MG/2 ML VIAL IVPUSH ONE ×2 (00:01→03:18)
[2021-03-05] MEDS ORDERED: ONDANSETRON 4 MG/2 ML VIAL ONE ×2 (00:05→03:22)
[2021-03-05] MEDS ORDERED: LACTATED RINGERS SOLUTION 1000 ML INFUS.BAG IV ONE (01:28)
[2021-03-05] MEDS ORDERED: MAGNESIUM SULF 50% (8.12 MEQ/2 ML-1 GM VIAL) IVPB ONE (05:54)
[2021-03-05] MEDS ORDERED: ONDANSETRON *ODT* 4 MG TABLET SL PRN (06:40)
[2021-03-05] MEDS ORDERED: MAGNESIUM SULFATE IN WATER 2 GM/50 ML IVPB IVPB ONE (06:50)
[2021-03-05] MEDS ORDERED: KCL 10 MEQ IVPB 10 MEQ/100 ML INFUS.BAG IVPB ONE (06:50)
[2021-03-05] MEDS: KCL 10 MEQ IVPB 10 MEQ/100 ML INFUS.BAG IVPB SCH ×3 (07:00→10:37)
[2021-03-05] MEDS: SODIUM CHLORIDE 1,000 ML IV SCH (07:00)
[2021-03-05 08:48] LABS: BASO % 0.9 % (0-2.0); HEMATOCRIT 45.7 % (32.4-45.2); HEMOGLOBIN 15.7 GM/dL (10.7-15.3); LYMPH % 5.3 % (8-40); MCH 32.1 pg (25.7-33.7); MCHC 34.3 g/dl (32.0-36.0); MEAN CELL VOLUME 93.6 fl (80-96); MEAN PLT VOLUME 10.2 fl (7.5-11.1); MONO % 3.2 % (3.8-10.2); NEUT % 90.6 % (42.8-82.8); PLATELET COUNT 234 K/MM3 (134-434); RBC 4.88 M/mm3 (3.60-5.2); RDW 14.5 % (11.6-15.6); WHITE BLOOD COUNT 19.5 K/mm3 (4.0-10.0)
[2021-03-05 09:17] LABS: CALCIUM 9.4 mg/dL (8.5-10.1)
[2021-03-05 09:18] LABS: ALBUMIN 4.4 g/dl (3.4-5.0); BLOOD UREA NITROGEN 7.1 mg/dL (7-18); MAGNESIUM 2.8 mg/dL (1.8-2.4)
[2021-03-05 09:21] LABS: CREATININE 0.8 mg/dL (0.55-1.3)
[2021-03-05 09:22] LABS: BILIRUBIN,TOTAL 0.7 mg/dL (0.2-1)
[2021-03-05 09:23] LABS: TOT PROT 8.2 g/dl (6.4-8.2)
[2021-03-05 09:31] LABS: EPI CELLS 24 /uL (0-25.1); HYALINE CASTS 1 /uL (0-3.1); URINE APPEARANCE CLEAR; URINE BACTERIA 194 /uL (0-1359); URINE BILIRUBIN NEGATIVE (NEGATIVE); URINE COLOR YELLOW; URINE GLUCOSE (UA) NEGATIVE (NEGATIVE); URINE KETONE 2+ (NEGATIVE); URINE LEUK ESTERASE NEGATIVE (NEGATIVE); URINE NITRITE NEGATIVE (NEGATIVE); URINE PROTEIN 3+ (NEGATIVE); URINE RBC 207 /uL (0-23.9); URINE UROBILINOGEN 0.2 mg/dL (0.2-1.0); URINE WBC 11 /uL (0-25.8)
[2021-03-05] MEDS: D5-1/2NS+10 MEQ KCL - 10 MEQ/1,000 ML INFUS.BAG IV SCH (09:41)
[2021-03-05 09:51] LABS: CALCIUM 9.5 mg/dL (8.5-10.1)
[2021-03-05 09:52] LABS: BLOOD UREA NITROGEN 7.6 mg/dL (7-18); MAGNESIUM 2.8 mg/dL (1.8-2.4)
[2021-03-05 09:55] LABS: CREATININE 0.8 mg/dL (0.55-1.3); PHOSPHOROUS 3.1 mg/dL (2.5-4.9)
[2021-03-05] MEDS: FOLIC ACID 1 MG TABLET (FP) PO SCH (11:10)
[2021-03-05] MEDS: MULTIVITAMINS (DAILY MVI) TABLET (FP) PO SCH (11:11)
[2021-03-05] MEDS: THIAMINE HCL 100 MG TABLET (FP) PO SCH (11:11)
[2021-03-05] MEDS: ENOXAPARIN NA (PORCINE) 40 MG/0.4 ML DISP.SYRIN SQ SCH (11:40)
[2021-03-05] MEDS ORDERED: ACETAMINOPHEN 325 MG TABLET (FP) PO ONE (11:45)
[2021-03-05] MEDS ORDERED: ACETAMINOPHEN 325 MG TABLET (FP) PO PRN (12:40)
[2021-03-05 12:47] VITALS: BMI 23.5
[2021-03-05] MEDS: ZOLPIDEM TARTRATE 5 MG TABLET PO PRN (22:03)
[2021-03-05] MEDS ORDERED: chlordiazePOXIDE HCL 25 MG CAPSULE PO PRN (22:23)
[2021-03-06] MEDS: SODIUM CHLORIDE 1,000 ML IV SCH (06:08)
[2021-03-06 08:43] LABS: BASO % 0.4 % (0-2.0); EOS % 0.2 % (0-4.5); HEMATOCRIT 43.4 % (32.4-45.2); LYMPH % 15.9 % (8-40); MCH 32.4 pg (25.7-33.7); MCHC 34.5 g/dl (32.0-36.0); MEAN CELL VOLUME 93.9 fl (80-96); MEAN PLT VOLUME 10.4 fl (7.5-11.1); MONO % 6.1 % (3.8-10.2); NEUT % 77.4 % (42.8-82.8); PLATELET COUNT 198 K/MM3 (134-434); RBC 4.62 M/mm3 (3.60-5.2); RDW 14.5 % (11.6-15.6); WHITE BLOOD COUNT 11.1 K/mm3 (4.0-10.0)
[2021-03-06] MEDS ORDERED: DEXTROSE 5%-WATER - 50 ML IVPB ONE (09:01)
[2021-03-06] MEDS ORDERED: cefTRIAXone SODIUM 1 GM VIAL ONE (09:01)
[2021-03-06 09:02] LABS: BLOOD UREA NITROGEN 13.7 mg/dL (7-18)
[2021-03-06 09:05] LABS: CREATININE 0.7 mg/dL (0.55-1.3)
[2021-03-06] MEDS: D5-1/2NS+10 MEQ KCL - 10 MEQ/1,000 ML INFUS.BAG IV SCH ×2 (09:21→18:51)
[2021-03-06] MEDS: MULTIVITAMINS (DAILY MVI) TABLET (FP) PO SCH (09:37)
[2021-03-06] MEDS: FOLIC ACID 1 MG TABLET (FP) PO SCH (09:37)
[2021-03-06] MEDS: ENOXAPARIN NA (PORCINE) 40 MG/0.4 ML DISP.SYRIN SQ SCH (09:37)
[2021-03-06] MEDS: THIAMINE HCL 100 MG TABLET (FP) PO SCH (09:37)
[2021-03-06] MEDS: CEFTRIAXONE 1 GM in DEXTROSE 5%-WATER - 50 ML IVPB SCH (09:37)
[2021-03-06] MEDS ORDERED: CEFTRIAXONE 1 GM in DEXTROSE 5%-WATER - 50 ML IVPB SCH (10:00)
[2021-03-06] MEDS: ZOLPIDEM TARTRATE 5 MG TABLET PO PRN (20:23)
[2021-03-07] MEDS: D5-1/2NS+10 MEQ KCL - 10 MEQ/1,000 ML INFUS.BAG IV SCH ×2 (05:04→10:37)
[2021-03-07 08:32] LABS: BASO % 0.5 % (0-2.0); EOS % 0.6 % (0-4.5); HEMATOCRIT 41.3 % (32.4-45.2); HEMOGLOBIN 14.7 GM/dL (10.7-15.3); LYMPH % 25.8 % (8-40); MCHC 35.5 g/dl (32.0-36.0); MEAN CELL VOLUME 92.9 fl (80-96); MONO % 7.6 % (3.8-10.2); NEUT % 65.5 % (42.8-82.8); PLATELET COUNT 182 K/MM3 (134-434); RBC 4.44 M/mm3 (3.60-5.2); RDW 14.2 % (11.6-15.6); WHITE BLOOD COUNT 7.6 K/mm3 (4.0-10.0)
[2021-03-07 08:53] LABS: CALCIUM 8.6 mg/dL (8.5-10.1)
[2021-03-07 08:54] LABS: BLOOD UREA NITROGEN 12.8 mg/dL (7-18)
[2021-03-07 08:58] LABS: CREATININE 0.7 mg/dL (0.55-1.3)
[2021-03-07] MEDS ORDERED: cefTRIAXone SODIUM 1 GM VIAL ONE (10:09)
[2021-03-07] MEDS ORDERED: DEXTROSE 5%-WATER - 50 ML IVPB ONE (10:09)
[2021-03-07] MEDS: CEFTRIAXONE 1 GM in DEXTROSE 5%-WATER - 50 ML IVPB SCH (10:36)
[2021-03-07] MEDS: FOLIC ACID 1 MG TABLET (FP) PO SCH (10:36)
[2021-03-07] MEDS: THIAMINE HCL 100 MG TABLET (FP) PO SCH (10:36)
[2021-03-07] MEDS: MULTIVITAMINS (DAILY MVI) TABLET (FP) PO SCH (10:36)
[2021-03-07] MEDS: ENOXAPARIN NA (PORCINE) 40 MG/0.4 ML DISP.SYRIN SQ SCH (10:37)
[2021-03-07 14:41] VITALS: BP 121/81; PULSE 59; TEMP 99.8
== END 2021-03-07 14:58 | disposition home or self-care (01) | DRG 775 ==
LOC: JER 20:38 → JERBED 03-05 03:54 → J6S 03-05 09:20
PROVIDERS: ADMIT Internal Medicine; ATTEND Internal Medicine
DX: F10.239 Alcohol dependence with withdrawal, unspecified (principal); R11.2 Nausea with vomiting, unspecified; N39.0 Urinary tract infection, site not specified; K52.9 Noninfective gastroenteritis and colitis, unspecified; E87.6 Hypokalemia; E83.42 Hypomagnesemia; F12.20 Cannabis dependence, uncomplicated; E86.0 Dehydration
CPT/HCPCS: 36415; 70450-TC; 71045-TC-FY; 80048; 80053; 81003; 82962; 83036; 83690; 83735; 84100; 84484; 85025; 85027; 87086; 93005; 93010; 99285-25; C9803; Q0162; U0003; U0005

== ENCOUNTER 2021-09-14 08:31 | Emergency (ER) | payer OTHER ==
[2021-09-14 08:51] VITALS: BMI 21.9
[2021-09-14] MEDS ORDERED: METOCLOPRAMIDE HCL INJECTION 10 MG/2 ML VIAL IVPB ONE (09:29)
[2021-09-14] MEDS ORDERED: SODIUM CHLORIDE 1,000 ML IV STA (09:29)
[2021-09-14] MEDS ORDERED: METOCLOPRAMIDE HCL INJECTION 10 MG/2 ML VIAL ONE (09:32)
[2021-09-14 10:00] LABS: BASO % 0.3 % (0-2.0); EOS % 0.1 % (0-4.5); HEMATOCRIT 43.2 % (32.4-45.2); HEMOGLOBIN 15.1 GM/dL (10.7-15.3); MCH 32.6 pg (25.7-33.7); MCHC 35.1 g/dl (32.0-36.0); MEAN PLT VOLUME 9.7 fl (7.5-11.1); MONO % 3.8 % (3.8-10.2); NEUT % 88.8 % (42.8-82.8); PLATELET COUNT 226 10^3/uL (134-434); RBC 4.65 M/mm3 (3.60-5.2); RDW 14.1 % (11.6-15.6)
[2021-09-14 10:36] LABS: CALCIUM 9.8 mg/dL (8.5-10.1)
[2021-09-14 10:37] LABS: ALBUMIN 4.3 g/dl (3.4-5.0); BLOOD UREA NITROGEN 8.4 mg/dL (7-18)
[2021-09-14 10:40] LABS: CREATININE 0.7 mg/dL (0.55-1.3)
[2021-09-14 10:41] LABS: BILIRUBIN,TOTAL 0.5 mg/dL (0.2-1); TOT PROT 8.1 g/dl (6.4-8.2)
[2021-09-14 11:55] VITALS: BP 179/79; PULSE 81; TEMP 99.8
== END 2021-09-14 12:06 | disposition home or self-care (01) ==
LOC: JER 08:31
PROC: 3E033NZ Introduction of Analgesics, Hypnotics, Sedatives into Peripheral Vein, Percutaneous Approach (ICD-10-PCS; principal; 2021-09-14)
PROC: 3E0337Z Introduction of Electrolytic and Water Balance Substance into Peripheral Vein, Percutaneous Approach (ICD-10-PCS; 2021-09-14)
DX: R11.2 Nausea with vomiting, unspecified (principal); R19.7 Diarrhea, unspecified
CPT/HCPCS: 36415; 80053; 85025; 96361; 96374; 99284-25; C9803; U0003; U0005

== ENCOUNTER 2022-02-22 04:16 | Day surgery (SDC) | payer OTHER ==
[2022-02-21 16:54] VITALS: BMI 21.1
[2022-02-22] MEDS ORDERED: LIDOCAINE HCL 1%, 10 MG/ML (20ML VIAL) ONE (10:52)
[2022-02-22] MEDS ORDERED: oxyCODONE HCL 5 MG TABLET PO PRN (11:40)
[2022-02-22] MEDS ORDERED: ONDANSETRON 4 MG/2 ML VIAL IVPUSH PRN (11:40)
[2022-02-22] MEDS ORDERED: LACTATED RINGERS SOLUTION 1,000 ML IV SCH (11:45)
[2022-02-22] MEDS ORDERED: LIDOCAINE HCL/PF 2% SDV 5ML VIAL ONE (11:46)
[2022-02-22] MEDS ORDERED: DEXAMETHASONE SOD PHOSPHATE 4 MG/1 ML VIAL ONE (11:46)
[2022-02-22] MEDS ORDERED: PROPOFOL 20 ML ONE ×2 (11:46→12:21)
[2022-02-22] MEDS ORDERED: MIDAZOLAM HCL 2 MG/2 ML SINGLE DOSE VIAL ONE (11:46)
[2022-02-22] MEDS ORDERED: ceFAZolin SODIUM 1 GM VIAL ONE (12:13)
[2022-02-22] MEDS ORDERED: ceFAZolin SODIUM 1 GM VIAL IVPB ONE (12:14)
[2022-02-22] MEDS ORDERED: LIDOCAINE HCL 1%, 10 MG/ML (20ML VIAL) NR ONE (12:22)
[2022-02-22] MEDS ORDERED: BACITRACIN 15 GM TUBE TOPICAL OINTMENT ONE (12:43)
[2022-02-22 14:47] VITALS: TEMP 98.8
[2022-02-22 16:47] VITALS: BP 125/65; PULSE 58
== END 2022-02-22 16:08 | disposition home or self-care (01) ==
LOC: JASU-SURG 04:16
PROVIDERS: ATTEND Surgery
PROC: 0HB5XZZ Excision of Chest Skin, External Approach (ICD-10-PCS; 2022-02-22)
PROC: 0HQW0ZZ Repair Right Nipple, Open Approach (ICD-10-PCS; 2022-02-22)
PROC: 0HBT0ZX Excision of Right Breast, Open Approach, Diagnostic (ICD-10-PCS; principal; 2022-02-22 11:00)
DX: D24.1 Benign neoplasm of right breast (principal); L91.8 Other hypertrophic disorders of the skin; N64.59 Other signs and symptoms in breast
CPT/HCPCS: 88305-TC; 88307-TC; 88342-TC; 94760

== ENCOUNTER 2022-08-05 14:57 | Emergency (ER) | payer OTHER ==
[2022-08-05 15:29] VITALS: RESP 19; BMI 25.0
[2022-08-05] MEDS ORDERED: SODIUM CHLORIDE 0.9% 500 ML INFUS.BAG IV ONE ×2 (17:32→20:13)
[2022-08-05] MEDS ORDERED: ONDANSETRON 4 MG/2 ML VIAL IVPUSH ONE (17:32)
[2022-08-05] MEDS ORDERED: ONDANSETRON 4 MG/2 ML VIAL ONE (18:03)
[2022-08-05 18:13] LABS: BASO % 0.5 % (0-2.0); HEMATOCRIT 50.3 % (32.4-45.2); HEMOGLOBIN 16.5 GM/dL (10.7-15.3); LYMPH % 7.4 % (8-40); MCH 30.5 pg (25.7-33.7); MCHC 32.8 g/dl (32.0-36.0); MEAN CELL VOLUME 93.1 fl (80-96); MEAN PLT VOLUME 9.4 fl (7.5-11.1); MONO % 4.6 % (3.8-10.2); NEUT % 87.5 % (42.8-82.8); PLATELET COUNT 260 10^3/uL (134-434); WHITE BLOOD COUNT 13.7 K/mm3 (4.0-10.0)
[2022-08-05 18:46] LABS: ALBUMIN 4.7 g/dl (3.4-5.0); BLOOD UREA NITROGEN 10.7 mg/dL (7-18); MAGNESIUM 2.2 mg/dL (1.8-2.4)
[2022-08-05 18:49] LABS: CREATININE 0.8 mg/dL (0.55-1.3)
[2022-08-05 18:50] LABS: BILIRUBIN,TOTAL 0.6 mg/dL (0.2-1); TOT PROT 8.9 g/dl (6.4-8.2)
[2022-08-05 22:38] VITALS: BP 100/68; PULSE 72; TEMP 98.6
== END 2022-08-05 22:38 | disposition home or self-care (01) ==
LOC: JER 14:57
PROC: 3E033GC Introduction of Other Therapeutic Substance into Peripheral Vein, Percutaneous Approach (ICD-10-PCS; principal; 2022-08-05)
DX: A09 Infectious gastroenteritis and colitis, unspecified (principal)
CPT/HCPCS: 36415; 80053; 83735; 85025; 99284-25